=== PATIENT | male | born 1955 | race Caucasian/White ===

== ENCOUNTER 2016-12-03 14:16 | Emergency (ER) | payer BC ==
[~2016-12-03] VITALS: Ht 167.6 cm; Wt 78.0 kg
[~2016-12-03 14:16] MED LIST: ADULT ASPIRIN L81 MG PO; ATORVASTATIN CA40 MG PO; EFFIENT10 MG OR; NITROSTAT0.4 MG SL; ZESTRIL10 M1 PO
[2016-12-03] MEDS ORDERED: GLYBURIDE MICRON6 MG PO (14:31)
[2016-12-03] MEDS ORDERED: TRAMADOL HYDROC50 MG PO (15:12)
[2016-12-03] MEDS ORDERED: PREDNISONE50 MG PO (15:12)
[2016-12-03] MEDS ORDERED: BENADRYL 50MG C50 MG PO (15:12)
[2016-12-03] MEDS ORDERED: CIMETIDINE400 M1 PO (15:12)
[2016-12-03 15:35] VITALS: BP 126/80
== END 2016-12-03 15:44 | disposition home or self-care (01) | DRG 607 ==
LOC: ED 14:16
DX: S40.861A Insect bite (nonvenomous) of right upper arm, initial encounter (principal); E11.9 Type 2 diabetes mellitus without complications; I25.10 Atherosclerotic heart disease of native coronary artery without angina pectoris; W57.XXXA Bitten or stung by nonvenomous insect and other nonvenomous arthropods, initial encounter; Y93.H2 Activity, gardening and landscaping; Y92.007 Garden or yard of unspecified non-institutional (private) residence as the place of occurrence of the external cause; Z95.5 Presence of coronary angioplasty implant and graft

== ENCOUNTER 2018-07-25 08:07 | Day surgery (SDC) | payer MEDICARE ==
[~2018-07-25] VITALS: Ht 167.6 cm; Wt 77.1 kg
[~2018-07-25 08:07] MED LIST changes: +BENADRYL 50MG C50 MG PO; +CIMETIDINE400 M1 PO; +GLIMEPIRIDE4 MG PO; +GLYBURIDE MICRON6 MG PO; +JANUMET1 TA1 PO; +METFORMIN500 MG PO; +OMEPRAZOLE20 M1 PO; +PRASUGREL10 MG; +PREDNISONE50 MG PO; +ROPINIROLE0.5 MG PO; +ROSUVASTATIN CAL5 MG PO; +TRAMADOL HYDROC50 MG PO
[2018-07-25 11:01] VITALS: BP 132/74
== END 2018-07-25 11:15 | disposition home or self-care (01) ==
LOC: ENDO 08:07 → ORM 10:30 → ENDO 10:30
PROVIDERS: ATTEND Surgery
PROC: 0DBL8ZX Excision of Transverse Colon, Via Natural or Artificial Opening Endoscopic, Diagnostic (ICD-10-PCS; principal; 2018-07-25)
PROC: 0DB98ZX Excision of Duodenum, Via Natural or Artificial Opening Endoscopic, Diagnostic (ICD-10-PCS; 2018-07-25)
PROC: 0DB78ZX Excision of Stomach, Pylorus, Via Natural or Artificial Opening Endoscopic, Diagnostic (ICD-10-PCS; 2018-07-25)
PROC: 0DB48ZX Excision of Esophagogastric Junction, Via Natural or Artificial Opening Endoscopic, Diagnostic (ICD-10-PCS; 2018-07-25)
DX: Z12.11 Encounter for screening for malignant neoplasm of colon (principal); D12.3 Benign neoplasm of transverse colon; K64.8 Other hemorrhoids; K57.30 Diverticulosis of large intestine without perforation or abscess without bleeding; K21.0 Gastro-esophageal reflux disease with esophagitis; K22.70 Barrett's esophagus without dysplasia; K29.70 Gastritis, unspecified, without bleeding; K44.9 Diaphragmatic hernia without obstruction or gangrene; E11.9 Type 2 diabetes mellitus without complications; I10 Essential (primary) hypertension; Z79.899 Other long term (current) drug therapy

== ENCOUNTER 2021-10-18 18:09 | Emergency (ER) | payer MEDICARE ==
[~2021-10-18] VITALS: Ht 167.6 cm; Wt 75.0 kg
[2021-10-18 18:33] VITALS: BP 133/74
[2021-10-18 18:45] VITALS: BP 128/72
[2021-10-18 19:00] VITALS: BP 118/74
[2021-10-18 19:16] VITALS: BP 130/53
[2021-10-18] MEDS ORDERED: KEFLEX500 MG PO (19:18)
[2021-10-18 19:30] VITALS: BP 116/72
== END 2021-10-18 19:40 | disposition home or self-care (01) ==
LOC: ED 18:09
PROC: 0HQLXZZ Repair Left Lower Leg Skin, External Approach (ICD-10-PCS; principal; 2021-10-18)
DX: S81.811A Laceration without foreign body, right lower leg, initial encounter (principal); I10 Essential (primary) hypertension; E11.9 Type 2 diabetes mellitus without complications; W26.8XXA Contact with other sharp object(s), not elsewhere classified, initial encounter; Y93.89 Activity, other specified; Y92.009 Unspecified place in unspecified non-institutional (private) residence as the place of occurrence of the external cause; Z79.84 Long term (current) use of oral hypoglycemic drugs

== ENCOUNTER 2024-04-17 20:01 | Emergency (ER) | payer MEDICARE ==
[~2024-04-17] VITALS: Ht 167.6 cm; Wt 48.0 kg
[~2024-04-17 20:01] MED LIST changes: +KEFLEX500 MG PO
[2024-04-17] MEDS ORDERED: HUMALOG100 UNIT/M SC (20:11)
[2024-04-17] MEDS ORDERED: LANTUS100 UNIT SC (20:11)
[2024-04-17] MEDS ORDERED: INSULIN REGULAR (HUMAN) 100 UNIT/ML INJ SC STA (20:21)
[2024-04-17] MEDS ORDERED: SODIUM CHLORIDE 0.9% 1,000 ML IV ONE ×2 (20:25→21:40)
[2024-04-17] MEDS ORDERED: INSULIN REGULAR (HUMAN) 100 UNIT/ML INJ SC ONE (20:40)
[2024-04-17 20:49] LABS: BASO% 0.5 % (0-3); HEMATOCRIT 27.9 % (39.0-50.0); HEMOGLOBIN 9.4 g/dl (14.0-18.0); IMMATURE GRANULOCYTES 0.5 % (0.0-5.0); LYMPH% 62.5 % (15-41); MEAN CELL VOLUME 86.9 fL CALC (80.0-100.0); MEAN CORPUSCULAR HGB 29.3 pG CALC (26.0-32.0); MEAN CORPUSCULAR HGB CONC 33.7 g/dL CAL (32.0-36.0); MONO% 1.5 % (2-13); NEUT# 0.64 thou/uL (1.82-7.42); RED BLOOD COUNT 3.21 mill/uL (4.70-6.10); RED CELL DISTRI WIDTH 13.6 % (11.5-15.5)
[2024-04-17 20:52] LABS: CREATININE 0.6 mg/dL (0.7-1.3)
[2024-04-17 20:55] LABS: ALBUMIN 2.3 g/dL (3.2-5.0); BILIRUBIN, TOTAL 0.4 mg/dL (0.2-1.3); POTASSIUM 3.7 mmol/l (3.5-5.1); TOTAL PROTEIN 4.6 g/dL (6.3-8.2)
[2024-04-17 22:00] VITALS: BP 119/67
[2024-04-17 22:30] VITALS: BP 128/54
[2024-04-17] MEDS ORDERED: LACTATED RINGER'S 1,000 ML IV ONE (22:35)
[2024-04-17 22:55] LABS: URINE BILIRUBIN - DIPSTICK Negative (NEGATIVE); URINE BLOOD DIPSTICK Trace-intact (NEGATIVE); URINE GLUCOSE - DIPSTICK 250 mg/dL (NEGATIVE); URINE KETONE Negative (NEGATIVE); URINE LEUK ESTERASE Negative (NEGATIVE); URINE NITRITE - DIPSTICK Negative (Negative); URINE PH 5.5 (4.5-8.0); URINE PROTEIN - DIPSTICK 30 mg/dL (NEG-TRACE); URINE SPECIFIC GRAVITY 1.025; URINE UROBILINOGEN - DIPSTICK 0.2 E.U./dL (0.2)
[2024-04-17 22:57] LABS: URINE COLOR Yellow
[2024-04-17 23:00] VITALS: BP 116/57
[2024-04-17 23:03] LABS: URINE BACTERIA FEW hpf; URINE EPITHELIAL CELLS FEW EPI/hpf (0-FEW); URINE MUCUS MODERATE hpf (NONE-FEW); URINE WBC 0-2 WBC/hpf (0-5)
[2024-04-17] MEDS ORDERED: COMPAZINE10 MG PO (23:07)
[2024-04-17] MEDS ORDERED: HEPARIN SODIUM FLUSH (PORCINE) 100 UNITS/ML 3 ML SYR IV ONE (23:20)
[2024-04-17 23:24] VITALS: BP 128/66
[2024-04-17 23:30] VITALS: BP 111/95
[2024-04-18] VITALS: BP 121/62
[2024-04-18 00:05] VITALS: BP 121/62
== END 2024-04-18 00:05 | disposition home or self-care (01) ==
LOC: ED 20:01
PROVIDERS: Family Medicine
DX: R11.2 Nausea with vomiting, unspecified (principal); T45.1X5A Adverse effect of antineoplastic and immunosuppressive drugs, initial encounter; C25.9 Malignant neoplasm of pancreas, unspecified; I10 Essential (primary) hypertension; E10.9 Type 1 diabetes mellitus without complications; Z79.4 Long term (current) use of insulin; Z20.822 Contact with and (suspected) exposure to COVID-19